=== PATIENT | male | born 1985 ===

== ENCOUNTER 2018-11-13 22:57 | Emergency (ER) | payer SELFPAY ==
[2018-11-13] MEDS ORDERED: Oxycodone/Acetaminophen 5/325 mg Tab PO STA (23:14)
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
[2018-11-13 23:22] VITALS: RESP 18
[2018-11-14 02:39] VITALS: BP 122/71; PULSE 89; TEMP 98.5; O2SAT 98
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
== END 2018-11-14 02:38 | disposition home or self-care (01) ==
LOC: ED 22:57
DX: S00.11XA Contusion of right eyelid and periocular area, initial encounter (principal); Y04.0XXA Assault by unarmed brawl or fight, initial encounter